=== PATIENT | female | born 1995 | race Caucasian/White ===

== ENCOUNTER 2025-09-09 16:44 | Outpatient (CLI) | payer SELFPAY ==
--- NOTE | 2025-09-09 16:45 | CRLHL7_ITS ---
For Patients: As a result of the Cures Act, medical imaging exams and procedure reports are released immediately into your electronic medical record. You may view this report before your referring provider. If you have questions, please contact your health care provider. OB ULTRASOUND INDICATION: Dating and viability. TECHNIQUE: Real time dove scale imaging of the fetus was performed. Transvaginal imaging performed. LMP: 07/04/2025. GWEN by LMP: 04/10/2026. GA: 9 w, 4 d. Previous US: No. CRL: 2.8 cm. 9 w 4 d. GWEN: 04/10/2026. FHR: 161 BPM. Gestational sac: 5.3 cm. Appears within normal limits. Yolk sac: 3.8 mm. Appears within normal limits. Right ovary: N/V. Left ovary: 5.2 x 1.8 x 1.6 cm. CL. IMPRESSION: 1. Single living intrauterine measures 9 weeks 4 days with sonographic due date 04/10/2026. 2. Right inferior subchorionic hemorrhage measures 4.7 x 2.7 x 2.3 cm. Jitendra Butt M.D. Diagnostic Radiologist [email or web address] MILY/Dictated by: Jitendra Butt MD @ 09/09/2025 7:51:00 PM (Electronically Signed)
== END 2025-09-09 16:45 | disposition home or self-care (01) ==
LOC: US 16:44
PROVIDERS: Visit Provider Registered Nurse
DX: O20.9 Hemorrhage in early pregnancy, unspecified (principal); Z3A.09 9 weeks gestation of pregnancy
CPT/HCPCS: 76817

== ENCOUNTER 2025-09-09 17:52 | Outpatient (CLI) | payer OTHER, SELFPAY ==
[2025-09-09 23:55] LABS: Chlamydia DNA Amplified* NOT DETECTED (No Detected); GC DNA Amplified* NOT DETECTED (No Detected)
== END 2025-09-09 17:53 | disposition home or self-care (01) ==
PROVIDERS: Visit Provider Registered Nurse
DX: Z34.91 Encounter for supervision of normal pregnancy, unspecified, first trimester (principal)
CPT/HCPCS: 83020; 83021; 85660; 86592; 86703; 86704; 86706; 86762; 86787; 86803; 86850; 86900; 86901; 87086; 87340; 87491; 87591

== ENCOUNTER 2025-10-27 14:15 | Outpatient (CLI) | payer SELFPAY | END 2025-10-27 14:16 | disposition home or self-care (01) | LOC: NFLDREF 10-30 11:00 | PROVIDERS: Visit Provider Advanced Practice Midwife | DX: Z34.92 Encounter for supervision of normal pregnancy, unspecified, second trimester (principal) | CPT/HCPCS: 82728; 83540; 83550 ==